=== PATIENT | male | born 1935 | race Caucasian/White ===

== ENCOUNTER 2022-06-20 19:03 | Emergency (ER) | payer MEDICAID ==
[~2022-06-20] VITALS: Ht 162.6 cm; Wt 75.7 kg
[2022-06-20 19:24] VITALS: BP 135/61
--- NOTE | 2022-06-20 19:31 | NUR ---
Dr. Pulliam examining patient.
[2022-06-20] MEDS ORDERED: ACETAMINOPHEN EXTRA STRENGTH 500 MG TAB PO ONE (20:10)
[2022-06-20] MEDS ORDERED: NACL 0.9% 1,000 ML IV ONE (20:10)
--- NOTE | 2022-06-20 20:24 | NUR ---
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 Patient tolerated well.
--- NOTE | 2022-06-20 20:30 | NUR ---
87YR OLD MALE BIB FAMILY C/O GEN WEAKNESS AND FEVER X2 WEEKS . PT DENIES CP OR SOB. STATES BP HAS BEEN ELEVATED WELL. PT IS A&OX4. MICRONESIAN SPEAKING ONLY. SON AT BEDSIDE. 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 SPO2 96& RA. NO DISTRESS NOTED. HOB ELEVATED BED AT LOWEST POSITION. NKDA HTN DM
[2022-06-20 20:40] LABS: BASOPHILS # (AUTO) 0.1 K/uL (0.00-0.22); BASOPHILS % (AUTO) 0.7 % (0.0-2.0); EOSINOPHILS # (AUTO) 0.3 K/uL (0-0.4); EOSINOPHILS % (AUTO) 3.8 % (0.0-4.0); HEMATOCRIT 41.5 % (36-52); HEMOGLOBIN 13.7 g/dL (12.0-18.0); LYMPHOCYTES # (AUTO) 1.6 K/uL (2.0-11.5); LYMPHOCYTES % (AUTO) 20.4 % (20.5-51.1); MEAN CORPUSCULAR HEMOGLOBIN 27 pg (27-31); MEAN CORPUSCULAR HGB CONC 33 g/dL (33-37); MEAN CORPUSCULAR VOLUME 81.7 fL (80-94); MONOCYTES # (AUTO) 0.7 K/uL (0.8-1.0); MONOCYTES % (AUTO) 8.8 % (1.7-9.3); NEUTROPHILS # (AUTO) 5.2 K/uL (1.8-7.7); NEUTROPHILS % (AUTO) 66.3 % (42.2-75.2); PLATELET COUNT (AUTO) 236 K/uL (140-450); RED BLOOD CELL COUNT(AUTO) 5.08 MIL/uL (4.20-6.10); RED CELL DISTRIBUTION WIDTH 15.3 % (11.6-13.7); WHITE BLOOD COUNT (AUTO) 7.8 K/uL (4.8-10.8)
[2022-06-20 21:25] LABS: ALBUMIN 3.8 g/dL (3.4-5.0); ANION GAP 15.5 (8-16); ASPARTATE AMINOTRANSFERASE 22 U/L (15-37); CARBON DIOXIDE 24.8 mmol/L (21-32); CHLORIDE 103 mmol/L (98-107); GLUCOSE 94 mg/dL (74-106); POTASSIUM 4.3 mmol/L (3.5-5.1); SODIUM SERUM 139 mmol/L (136-145); TOTAL BILIRUBIN 1.2 mg/dL (0.0-1.0); UREA NITROGEN, BLOOD 15 mg/dL (7-18)
--- NOTE | 2022-06-20 21:39 | NUR ---
PT AMBULATED TO ER BED 6
[2022-06-20] MEDS ORDERED: ACETAMINOPHEN EXTRA STRENGTH 500 MG TAB ONE (22:04)
--- NOTE | 2022-06-20 22:21 | NUR ---
PT TAKEN TO CT
--- NOTE | 2022-06-20 22:40 | NUR ---
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
[2022-06-21 00:26] VITALS: BP 125/62
--- NOTE | 2022-06-21 00:26 | NUR ---
Patient discharged with v/s stable. Written and verbal after care instructions given and explained. Patient alert, oriented and verbalized understanding of instructions. [g ED.DCMODE] with [g ED.D/CMODE]. All questions addressed prior to discharge. ID band removed. Patient advised to follow up with PMD. Rx of [] given. Patient educated on indication of medication including possible reaction and side effects. Opportunity to ask questions provided and answered.
--- NOTE | 2022-06-21 00:26 | NUR ---
Chart checked and completed.
[2022-06-21] MEDS ORDERED: OLAN10TA70 PO (00:35)
== END 2022-06-21 00:26 | disposition home or self-care (01) ==
LOC: MED 19:03
DX: R53.81 Other malaise (principal); R50.9 Fever, unspecified; M79.10 Myalgia, unspecified site; R09.89 Other specified symptoms and signs involving the circulatory and respiratory systems; I10 Essential (primary) hypertension; Z79.899 Other long term (current) drug therapy
CPT/HCPCS: 71275; 74174; 80053; 85025; 96360; 99285; J7030; Q9967